=== PATIENT | male | born 1995 | race Asian ===

== ENCOUNTER 2017-01-20 23:38 | Emergency (ER) | payer OTHER ==
[~2017-01-20] VITALS: Ht 172.7 cm; Wt 68.3 kg
[2017-01-20 23:41] VITALS: TEMP 36.5; Ht 172.7 cm; Wt 68.3 kg
[2017-01-21] MEDS ORDERED: SODIUM CHLORIDE 0.9% 1000ML 1,000 ML IV STA (00:09)
[2017-01-21] MEDS ORDERED: ONDANSETRON INJ 2 MG/ML 2 ML VIAL IV STA (00:09)
[2017-01-21 01:20] LABS: BUN/CREATININE RATIO 19.7 (10-20); CALCIUM 8.5 mg/dl (8.5-10.1); CREATININE 1.1 mg/dl (0.60-1.40); POTASSIUM 3.6 mmol/L (3.5-5.1)
--- NOTE | 2017-01-21 05:40 | EMERGENCY ROOM VISIT NOTE ---
History Report prepared by [place]: Angella Olmedo Under the Supervision of: Dr. Spencer Hackett M.D. First contact with patient: 23:39 Chief Complaint: OVERDOSE (ACCIDENTAL) Stated Complaint: ALCOHOL/DRUG USE Nursing Triage Summary: patient states tonight his friends offered him a chocolate bar that had THC in it. patient states after eating it he became nauseated and didnt feel like himself. patient states he called ambulance to be checked out. History of Present Illness The patient is a 21 year old male who presents to the Emergency Room via EMS with complaints of persistently feeling unwell following eating a THC chocolate bar this evening two hours ago. The patient ate a chocolate bar with THC in the bar this evening. He started to feel unlike himself, nauseous, and vomited. The patient then called EMS. The patient states that he usually drinks 1-2 nights a week. The patient denies any other drug or alcohol use tonight. Before eating the chocolate bar, the patient states that he was playing basketball with friends and that he felt fine. denies chest pain, shortness of breath, abdominal pain. Source of History: patient Onset: 2 hours ago Position: other (global ) Quality: other Timing: other (persistently ) Associated Symptoms: + nausea, + vomiting, No SOB, No abdominal pain, No chest pain Review of Systems See HPI for pertinent positives & negatives. A total of 10 systems reviewed and were otherwise negative. Past Medical & Surgical Medical Problems: (1) No chronic problems Family History No pertinent family history Social History Smoking Status: Current Some Day Smoker Alcohol Use: occasionally Housing Status: lives with roommate Occupation Status: [employer] student Current/Historical Medications No Active Prescriptions or Reported Meds Allergies Coded Allergies: No Known Allergies (Unverified , 01/21/17) Physical Exam Vital Signs Date Time Temp Pulse Resp B/P Pulse Ox O2 Delivery O2 Flow Rate FiO2 01/21/17 06:07 76 18 123/80 100 Room Air 01/21/17 04:22 75 20 110/58 100 Room Air 01/21/17 02:30 90 20 119/65 97 Room Air 01/21/17 00:52 89 20 111/65 99 Room Air 01/20/17 23:41 36.5 99 20 145/92 98 Room Air Physical Exam GENERAL: Patient is somnolent and under the influence of sedative of unknown etiology. Smells of vomit. Well appearing and in no acute distress. HEAD: No evidence of Trauma. AT/NC EYES: Injected conjunctiva. Normal EOM. Pupils equal/reactive. ENT: Mucous membranes moist, no nasal congestion, . NECK: No step-offs, no adenopathy, no meningismus, trachea is midline. Multiple hickies bilaterally. LUNGS: No dyspnea. Clear to auscultation and equal bilaterally. No wheeze, no rhonchi. HEART: Regular rate and rhythm. No murmurs, rubs, gallops appreciated. ABDOMEN: Soft, nontender, bowel sounds positive, no masses appreciated, no peritonitis. BACK: No midline tenderness, no CVA tenderness EXTREMITIES: Normal motion all extremities, no cyanosis, no edema. Right arm sleeve tattoo. NEUROLOGIC: Intoxicated. Alert, oriented. No acute motor or sensory deficits, no focal weakness, cranial nerves grossly intact. SKIN: No rash, no jaundice, no diaphoresis. Medical Decision & Procedures Laboratory Results 01/21/17 00:42 Test 01/21/17 00:42 Anion Gap 10.0 mmol/L (3-11) Est Creatinine Clear Calc Drug Dose 103.5 ml/min Estimated GFR () 111.4 Estimated GFR (Non- 96.1 BUN/Creatinine Ratio 19.7 (10-20) Calcium Level 8.5 mg/dl (8.5-10.1) Ethyl Alcohol mg/dL < 3.0 mg/dl (0-3) Laboratory results as reviewed by me. Medications Administered Medications (Trade) Dose Ordered Sig/Lio Route Start Time Stop Time Status Last Admin Dose Admin Sodium Chloride (Nss 1000ml) 1,000 ml @ 999 mls/hr Q1H1M STAT IV 01/21/17 00:09 01/21/17 01:09 DC 01/21/17 00:52 999 MLS/HR Ondansetron HCl (Zofran Inj) 4 mg NOW STAT IV 01/21/17 00:09 01/21/17 00:10 DC 01/21/17 00:52 4 MG ED Course 2340: The patient was evaluated in room B4.The patient was first evaluated by the medical student. A complete history and physical exam was performed. 0009: Zofran 4 mg IV, Sodium Chloride 1000 ml @ 999 mls/hr IV 0148: I reevaluated the patient; he is sleeping, groggy, and in no distress. 0354: I reevaluated the patient; he is sleeping. 0425: I reassessed the patient; he is sleeping comfortably. 0605: Reevaluated the patient. The patient is awake and feels better. Discussed results and discharge instructions: He verbalized understanding and agreement. The patient is ready for discharge. Medical Decision Differential: Alcohol Intoxication, Drug Intoxication, Electrolyte Abnormality, Trauma, Intracranial Event, Toxicological, Excited Delirium, Serotonin Syndrome , amongst other pathologies entertained. 21 yr old under the influence male brought in by EMS after vomiting after eating marijuana infused chocolate. Patient with no evidence nor history for trauma. Protecting airway and breathing comfortably throughout ED stay. Given IV fluids and zofran with resolution of symptoms. Monitored and discharged when awake, alert, oriented and denies any complaints. Impression Primary Impression: Adverse reaction to cannabis Additional Impression: Vomiting Scribe Attestation The scribe's documentation has been prepared under my direction and personally reviewed by me in its entirety. I confirm that the note above accurately reflects all work, treatment, procedures, and medical decision making performed by me. Departure Information Dispostion Home / Self-Care Prescriptions No Active Prescriptions or Reported Meds Patient Instructions ED Drug Abuse General, My [facility] Additional Instructions You should not be taking illegal drugs. This is dangerous and could lead to severe adverse reactions, as it did this evening. Problem Qualifiers Primary Impression: Adverse reaction to cannabis Encounter type: initial encounter Qualified Codes: T40.7X5A - Adverse effect of cannabis (derivatives), initial encounter Additional Impression: Vomiting Vomiting type: unspecified Vomiting Intractability: non-intractable Nausea presence: with nausea Qualified Codes: R11.2 - Nausea with vomiting, unspecified
[2017-01-21 06:07] VITALS: BP 123/80; PULSE 76; O2SAT 100
== END 2017-01-21 06:28 | disposition home or self-care (01) ==
LOC: EDBD 23:38 → C.EDB 23:40
DX: R11.2 Nausea with vomiting, unspecified (principal); T40.7X5A Adverse effect of cannabis (derivatives), initial encounter; F17.210 Nicotine dependence, cigarettes, uncomplicated